=== PATIENT | female | born 1960 | race Caucasian/White ===

== ENCOUNTER 2020-05-16 16:29 | Inpatient (IN) | payer SELFPAY ==
[2020-05-16 17:56] LABS: #Basophils 0.1 10x3/uL (0.0-0.2); #Eosinphils 0.3 10x3/uL (0.0-0.5); #Monocytes 1.2 10x3/uL (0.0-1.1); #Neutrophils 8.2 10x3/uL (1.5-8.4); %Basophils 0.6 % (0.0-2.0); %Eosinophils 2.1 % (0.0-6.0); %Lymphocytes 24.8 % (18.0-47.0); %Neutrophils 62.8 % (40.0-75.0); Hemoglobin 10.3 g/dL (12.0-15.5); Mean Corpuscular HGB CONC 30.9 g/dL (32.0-36.0); Mean Corpuscular Hemoglobin 18.7 pg (27.0-33.0); Mean Corpuscular Volume 60.4 fl (81.6-98.3); RBC Distribution Width 17.5 % (11.5-14.5); Red Blood Cell (RBC) Count 5.51 10x6/uL (3.90-5.03)
[2020-05-16 17:57] LABS: Platelet Count 280 10x3/uL (150-450)
[2020-05-16 18:03] LABS: ALT (SGPT) 20 U/L (8-55); AST (SGOT) 15 U/L (5-34); Albumin 4.2 g/dL (3.5-5.0); Alkaline Phosphatase 90 U/L (40-110); Anion Gap 14 mmol/L (10-20); BUN (Urea Nitrogen) 14 mg/dL (9.8-20.1); Bilirubin, Total 0.5 mg/dL (0.2-1.2); Calc. Creatinine Clearance 0 mL/min (70-130); Calcium 9.3 mg/dL (7.8-10.44); Carbon Dioxide 26 mmol/L (22-29); Chloride 104 mmol/L (98-107); Globulin 2.4 g/dL (2.4-3.5); Glucose 103 mg/dL (70-105); Protein, Total 6.6 g/dL (6.0-8.3); Sodium 140 mmol/L (136-145)
[2020-05-16 18:32] LABS: Anisocytosis SLIGHT = 6-15 cells (100X) (0-5/hpf); Microcytosis MODERATE=15-30 cells (100X) (0-5/hpf)
[2020-05-16 18:33] LABS: Elliptocytes SLIGHT = 2-5 cells (100X) (0-1/hpf); Macrocytosis SLIGHT = 6-15 cells (100X) (0-5/hpf)
[2020-05-16 18:35] LABS: Large Platelets SLIGHT; Stomatocytes SLIGHT = 2-5 cells (100X) (0-1/hpf)
[2020-05-16 18:36] LABS: Platelet Morphology Comment Appears Adequate
[2020-05-16 18:37] LABS: Reflex for Review?? YES
[2020-05-16] MEDS ORDERED: Aspirin Chewable 81 MG TAB ONE (19:46)
[2020-05-16] MEDS ORDERED: Acetaminophen 500 MG TAB ONE (20:48)
[2020-05-16] MEDS ORDERED: Ondansetron PF 4 MG/2 ML Vial IVP PRN (21:25)
[2020-05-16] MEDS ORDERED: HYDROcodone/Acetaminophen 5/325 mg Tablet PO PRN (21:25)
[2020-05-16] MEDS ORDERED: Zolpidem Tartrate 5 MG TAB PO PRN (21:25)
[2020-05-16] MEDS ORDERED: Calcium Carbonate 500 MG ChewTAB PO PRN (21:25)
[2020-05-16] MEDS ORDERED: Acetaminophen 325 MG TAB PO PRN (21:25)
[2020-05-16] MEDS ORDERED: Senokot S 8.6-50 MG TAB PO PRN (21:25)
[2020-05-16] MEDS ORDERED: hydrALAZINE 20 MG/ML VIAL SLOW IVP PRN (21:28)
[2020-05-16] MEDS ORDERED: Enoxaparin Sodium 120 MG/0.8 ML SYRINGE SC SCH (21:30)
[2020-05-16] MEDS ORDERED: Metoprolol Tartrate 25 MG TAB PO SCH (21:30)
[2020-05-16] MEDS ORDERED: Nitroglycerin 2% Ointment 1 INCH/1 GM Packet TOP SCH (22:15)
[2020-05-16 22:19] VITALS: BMI 51.0
[2020-05-17 04:54] LABS: Anion Gap 15 mmol/L (10-20); BUN (Urea Nitrogen) 15 mg/dL (9.8-20.1); Calc. Creatinine Clearance 162 mL/min (70-130); Calcium 9.2 mg/dL (7.8-10.44); Carbon Dioxide 24 mmol/L (22-29); Cardiac Risk 4.9 (Less than 4.5); Chloride 105 mmol/L (98-107); Cholesterol 163 mg/dl (< 200 Desired); Glucose 104 mg/dL (70-105); HDL Cholesterol 33 mg/dL (>60 Neg Risk); Iron 60 ug/dL (50-170); Iron Binding Capacity, Total 274 mcg/dL (265-497); LDL Cholesterol, Calculated 104 mg/dL; Potassium 3.5 mmol/L (3.5-5.1); Sodium 140 mmol/L (136-145); Triglycerides 129 mg/dL (Less than 150)
[2020-05-17 05:12] LABS: Ferritin 155.15 ng/mL (10-291); Thyroid Stimulating Hormone 2.5108 uIU/mL (0.35-4.94)
[2020-05-17] MEDS ORDERED: Sodium Chloride 0.9% 500 ML IV SCH (06:30)
[2020-05-17] MEDS: AMOXicillin 250 MG CAP PO SCH ×2 (09:00→19:56)
[2020-05-17] MEDS ORDERED: Famotidine 20 MG TAB PO SCH (09:00)
[2020-05-17] MEDS ORDERED: Aripiprazole 10 MG TAB PO SCH (09:00)
[2020-05-17] MEDS ORDERED: Lisinopril/Hydrochlorothiazide 20 mg/12.5 mg Tablet PO SCH (09:00)
[2020-05-17] MEDS: Hydrochlorothiazide 25 MG TAB PO SCH (09:00)
[2020-05-17] MEDS: Lisinopril 20 MG TAB PO SCH (09:00)
[2020-05-17] MEDS ORDERED: AMOXicillin 500 MG CAP PO SCH (09:00)
[2020-05-17] MEDS: Aripiprazole 2 MG TAB PO SCH (09:00)
[2020-05-17] MEDS: Metoprolol Tartrate 25 MG TAB PO SCH ×2 (09:00→19:56)
[2020-05-17] MEDS: Aspirin 81 mg Enteric Coated Tablet PO SCH (09:00)
[2020-05-17 10:49] LABS: Bilirubin Neg (Negative); Blood, Urine Negative (Negative); Clarity Clear (Clear); Glucose, Urine (Dipstick) Normal (Negative); Ketone, Urine Negative (Negative); Leukocyte Negative (Negative); Nitrite Negative (Negative); Protein, Urine (Dipstick) Negative (Neg-Trace); Specific Gravity, Urine 1.005 (1.002-1.036); Urobilinogen Normal mg/dL (Less than 2)
[2020-05-17 10:58] LABS: Bacteria/HPF Rare-Few HPF (None Seen); RBC/HPF 0-3 HPF (0-3); Squamous Epithelial None Seen HPF (0-3); Transitional Epithelial 0-3 HPF (None Seen); WBC/HPF 0-3 HPF (0-3)
[2020-05-17 12:57] LABS: SARS-CoV-2 PCR by NAA Not Detected (NotDetected)
[2020-05-17] MEDS: Montelukast Sodium 10 mg Tablet PO SCH (19:57)
[2020-05-18] MEDS ORDERED: Carvedilol 6.25 MG TAB PO SCH (08:00)
[2020-05-18] MEDS: Aspirin 81 mg Enteric Coated Tablet PO SCH (09:11)
[2020-05-18] MEDS: Hydrochlorothiazide 25 MG TAB PO SCH (09:12)
[2020-05-18] MEDS: Metoprolol Tartrate 25 MG TAB PO SCH ×2 (09:12→20:50)
[2020-05-18] MEDS: Aripiprazole 2 MG TAB PO SCH (09:13)
[2020-05-18] MEDS: AMOXicillin 250 MG CAP PO SCH ×2 (09:17→20:50)
[2020-05-18] MEDS: Lisinopril 20 MG TAB PO SCH (09:52)
[2020-05-18] MEDS ORDERED: Communication Order-Pharmacy FS SCH (10:15)
[2020-05-18] MEDS ORDERED: NIFEdipine XL 30 MG TAB PO SCH (20:00)
[2020-05-18] MEDS: Montelukast Sodium 10 mg Tablet PO SCH (20:50)
[2020-05-19 06:03] LABS: Anion Gap 17 mmol/L (10-20); BUN (Urea Nitrogen) 10 mg/dL (9.8-20.1); Calc. Creatinine Clearance 164 mL/min (70-130); Calcium 9.2 mg/dL (7.8-10.44); Carbon Dioxide 22 mmol/L (22-29); Chloride 104 mmol/L (98-107); Glucose 102 mg/dL (70-105); Potassium 3.5 mmol/L (3.5-5.1); Sodium 139 mmol/L (136-145)
[2020-05-19] MEDS ORDERED: Lidocaine 1% PF 5 ML VIAL ONE (06:11)
[2020-05-19] MEDS ORDERED: Nitroglycerin 50 MG/250 ML BOT 250 ML ONE (06:12)
[2020-05-19] MEDS ORDERED: Heparin 10,000 UNITS/ 10 ML VIAL ONE (06:12)
[2020-05-19] MEDS ORDERED: Sodium Chloride 0.9% 250 ML 0 ML ONE (06:13)
[2020-05-19] MEDS ORDERED: Sodium Chloride 0.9% 1,000 ML ONE (06:13)
[2020-05-19] MEDS ORDERED: Adenosine 6 MG/2 ML VIAL ONE (06:13)
[2020-05-19] MEDS ORDERED: Midazolam HCl 5 mg/5 ml Vial ONE (06:13)
[2020-05-19] MEDS ORDERED: Fentanyl 100 MCG/2 ML VIAL ONE (06:13)
[2020-05-19] MEDS ORDERED: Verapamil 5 MG/2 ML VIAL ONE (06:14)
[2020-05-19] MEDS: Metoprolol Tartrate 25 MG TAB PO SCH (06:21)
[2020-05-19] MEDS: Hydrochlorothiazide 25 MG TAB PO SCH (06:22)
[2020-05-19 06:26] LABS: #Basophils 0.1 10x3/uL (0.0-0.2); #Eosinphils 0.3 10x3/uL (0.0-0.5); #Monocytes 0.7 10x3/uL (0.0-1.1); #Neutrophils 5.8 10x3/uL (1.5-8.4); %Basophils 0.5 % (0.0-2.0); %Eosinophils 3.3 % (0.0-6.0); %Lymphocytes 26.7 % (18.0-47.0); %Monocytes 7.6 % (0.0-10.0); %Neutrophils 61.2 % (40.0-75.0); Mean Corpuscular HGB CONC 30.6 g/dL (32.0-36.0); Mean Corpuscular Hemoglobin 18.8 pg (27.0-33.0); Mean Corpuscular Volume 61.5 fl (81.6-98.3); Platelet Count 280 10x3/uL (150-450); RBC Distribution Width 17.5 % (11.5-14.5); Red Blood Cell (RBC) Count 5.85 10x6/uL (3.90-5.03); White Blood Cell (WBC) Count 9.4 10x3/uL (3.5-10.5)
[2020-05-19] MEDS: AMOXicillin 250 MG CAP PO SCH (07:12)
[2020-05-19] MEDS: Aspirin 81 mg Enteric Coated Tablet PO SCH (08:15)
[2020-05-19] MEDS: Aripiprazole 2 MG TAB PO SCH (08:15)
[2020-05-19] MEDS ORDERED: Lisinopril 20 MG TAB PO SCH (09:00)
[2020-05-19 11:21] VITALS: BP 121/62; TEMP 97.2
[2020-05-19 12:03] LABS: Hemoglobin A1c 5.6 % (4.0-6.0)
[2020-05-19] MEDS ORDERED: Nitroglycerin 0.4 MG TAB (25 Tab Bottle) SL PRN (15:03)
[2020-05-19] MEDS ORDERED: Sodium Chloride 0.9% 200 ML IV PRN (15:03)
[2020-05-19] MEDS ORDERED: Acetaminophen/Codeine 30-300mg Tablet PO PRN ×2 (15:03)
== END 2020-05-19 15:11 | disposition home or self-care (01) | DRG 287 ==
LOC: CSHERS 16:29 → CSHTELE 20:56
PROVIDERS: ADMIT Family Medicine; ATTEND Family Medicine
PROC: 4A023N7 Measurement of Cardiac Sampling and Pressure, Left Heart, Percutaneous Approach (ICD-10-PCS; principal; 2020-05-19)
PROC: B2111ZZ Fluoroscopy of Multiple Coronary Arteries using Low Osmolar Contrast (ICD-10-PCS; 2020-05-19)
PROC: B2151ZZ Fluoroscopy of Left Heart using Low Osmolar Contrast (ICD-10-PCS; 2020-05-19)
DX: I25.119 Atherosclerotic heart disease of native coronary artery with unspecified angina pectoris (principal); Z68.43 Body mass index [BMI] 50.0-59.9, adult; I12.9 Hypertensive chronic kidney disease with stage 1 through stage 4 chronic kidney disease, or unspecified chronic kidney disease; N18.2 Chronic kidney disease, stage 2 (mild); I16.0 Hypertensive urgency; F32.9 Major depressive disorder, single episode, unspecified; D56.3 Thalassemia minor; E66.01 Morbid (severe) obesity due to excess calories; D50.9 Iron deficiency anemia, unspecified; Z20.822 Contact with and (suspected) exposure to COVID-19
CPT/HCPCS: 71045; 71275; 75605; 80048; 80053; 80061; 81001; 82728; 83036; 83540; 83550; 84443; 84484; 85025; 85060; 85379; 87635; 93005; 93306; 93458; 99152; 99153; J0153; J1644; J1650; J2250; J3010; J7050; U0003; U0005

== ENCOUNTER 2021-02-03 10:49 | Observation (INO) | payer BC, OTHER, SELFPAY ==
[2021-02-03] MEDS ORDERED: Nitroglycerin 2% Ointment 1 INCH/1 GM Packet ONE (11:36)
[2021-02-03 11:38] LABS: #Basophils 0.1 10x3/uL (0.0-0.2); #Eosinphils 0.2 10x3/uL (0.0-0.5); #Monocytes 0.8 10x3/uL (0.0-1.1); %Basophils 0.6 % (0.0-2.0); %Eosinophils 2.4 % (0.0-6.0); %Lymphocytes 24.4 % (18.0-47.0); %Monocytes 8.5 % (0.0-10.0); %Neutrophils 63.8 % (40.0-75.0); Hemoglobin 11.5 g/dL (12.0-15.5); Mean Corpuscular HGB CONC 30.4 g/dL (32.0-36.0); Mean Corpuscular Hemoglobin 18.9 pg (27.0-33.0); Mean Corpuscular Volume 62.2 fl (81.6-98.3); Platelet Count 308 10x3/uL (150-450); RBC Distribution Width 17.3 % (11.5-14.5); Red Blood Cell (RBC) Count 6.08 10x6/uL (3.90-5.03); White Blood Cell (WBC) Count 9.3 10x3/uL (3.5-10.5)
[2021-02-03 11:54] LABS: Microcytosis MODERATE=15-30 cells (100X) (0-5/hpf)
[2021-02-03 11:55] LABS: Anisocytosis SLIGHT = 6-15 cells (100X) (0-5/hpf); Elliptocytes SLIGHT = 2-5 cells (100X) (0-1/hpf); Hypochromia SLIGHT = 6-15 cells (100X) (0-5/hpf); Ovalocytes SLIGHT = 2-5 cells (100X) (0-1/hpf); Polychromasia SLIGHT = 2-3 cells (100X) (0-2/hpf)
[2021-02-03 11:56] LABS: Platelet Morphology Comment Appears Adequate
[2021-02-03 12:05] LABS: ALT (SGPT) 18 U/L (8-55); AST (SGOT) 17 U/L (5-34); Albumin 4.4 g/dL (3.5-5.0); Alkaline Phosphatase 104 U/L (40-110); Anion Gap 13 mmol/L (10-20); BUN (Urea Nitrogen) 16 mg/dL (9.8-20.1); Bilirubin, Total 0.5 mg/dL (0.2-1.2); Calc. Creatinine Clearance 0 mL/min (70-130); Calcium 9.4 mg/dL (7.8-10.44); Carbon Dioxide 26 mmol/L (22-29); Chloride 104 mmol/L (98-107); Glucose 103 mg/dL (70-105); Potassium 4.1 mmol/L (3.5-5.1); Protein, Total 7.4 g/dL (6.0-8.3); Sodium 139 mmol/L (136-145)
[2021-02-03] MEDS ORDERED: Aspirin Chewable 81 MG TAB ONE (13:48)
[2021-02-03 14:45] LABS: SARS-CoV-2 NAA Rapid Test Not Detected (NotDetected)
[2021-02-03 16:21] VITALS: BMI 49.8
[2021-02-03] MEDS ORDERED: FLU VACC QS2021-22(6MOS UP)/PF 60 MCG/0.5 ML SYRINGE IM ONE (17:00)
[2021-02-03] MEDS ORDERED: Ondansetron ODT 4 MG TAB PO PRN (18:04)
[2021-02-03] MEDS ORDERED: Nitroglycerin 0.4 MG TAB (25 Tab Bottle) SL PRN (18:07)
[2021-02-03] MEDS ORDERED: Electrolyte Replacement Protocol 1 EACH FS SCH (18:15)
[2021-02-03 18:47] LABS: Troponin I Less than 0.010 ng/mL (< 0.028)
[2021-02-03] MEDS: Acetaminophen 325 MG TAB PO PRN ×2 (18:47→23:10)
[2021-02-03] MEDS ORDERED: cefTRIAXone\\ROCEPHIN 1 GM in Sodium Chloride 0.9% 100 ML IVPB SCH (21:00)
[2021-02-03] MEDS ORDERED: Atorvastatin Calcium 40 MG TAB PO SCH (21:00)
[2021-02-03 21:41] LABS: Bilirubin Neg (Negative); Blood, Urine Negative (Negative); Clarity Clear (Clear); Glucose, Urine (Dipstick) Normal (Negative); Ketone, Urine Negative (Negative); Leukocyte 25 (Negative); Nitrite Negative (Negative); Protein, Urine (Dipstick) 15 mg/dl (Neg-Trace)
[2021-02-03 21:51] LABS: Urine Culture Reflex No No
[2021-02-03 21:54] LABS: Troponin I Less than 0.010 ng/mL (< 0.028)
[2021-02-03 22:10] LABS: Bacteria/HPF Rare-Few HPF (None Seen); RBC/HPF None Seen HPF (0-3); Squamous Epithelial 0-3 HPF (0-3); WBC/HPF 0-3 HPF (0-3)
[2021-02-03] MEDS: Metoprolol Tartrate 25 MG TAB PO SCH (22:19)
[2021-02-03] MEDS: Nitroglycerin 2% Ointment 1 INCH/1 GM Packet TOP SCH (22:28)
[2021-02-04] MEDS: Acetaminophen 325 MG TAB PO PRN (06:00)
[2021-02-04] MEDS: Nitroglycerin 2% Ointment 1 INCH/1 GM Packet TOP SCH ×2 (06:00→12:36)
[2021-02-04] MEDS: Metoprolol Tartrate 25 MG TAB PO SCH (07:39)
[2021-02-04] MEDS ORDERED: Aripiprazole 2 MG TAB PO SCH (09:00)
[2021-02-04] MEDS ORDERED: Hydrochlorothiazide 25 MG TAB PO SCH (09:00)
[2021-02-04] MEDS ORDERED: Aspirin 81 mg Enteric Coated Tablet PO SCH (09:00)
[2021-02-04] MEDS ORDERED: Enoxaparin Sodium 40 MG/0.4 ML SYRINGE SC SCH (09:00)
[2021-02-04] MEDS ORDERED: Lisinopril 20 MG TAB PO SCH (09:00)
[2021-02-04 13:22] VITALS: BP 171/89; TEMP 97.6
== END 2021-02-04 18:05 | disposition home or self-care (01) ==
LOC: CSHERS 10:49 → CSHTELE 15:06
PROVIDERS: ADMIT Family Medicine; ATTEND Internal Medicine
DX: I20.8 Other forms of angina pectoris (principal); I10 Essential (primary) hypertension; N39.0 Urinary tract infection, site not specified; D56.9 Thalassemia, unspecified; E66.01 Morbid (severe) obesity due to excess calories; E78.5 Hyperlipidemia, unspecified; K21.9 Gastro-esophageal reflux disease without esophagitis; F32.A Depression, unspecified; Z20.822 Contact with and (suspected) exposure to COVID-19; Z79.899 Other long term (current) drug therapy
CPT/HCPCS: 36415; 71045; 71275; 80053; 81001; 83880; 84484; 85025; 87086; 93005; 94760; 96372; 96374; G0378; J0696; J1650; J3490; U0002